=== PATIENT | male | born 1990 | race Caucasian/White ===

== ENCOUNTER 2016-12-31 01:41 | Emergency (ER) | payer SELFPAY ==
[~2016-12-31] VITALS: Ht 185.4 cm; Wt 126.4 kg
[2016-12-31 01:43] VITALS: TEMP 37.4; Ht 185.4 cm; Wt 126.4 kg
[2016-12-31] MEDS ORDERED: LIDOCAINE/EPINEPHRINE 1% 20 ML VIAL INFIL ONE (02:00)
[2016-12-31] MEDS ORDERED: CEFTRIAXONE SOD 350MG/ML 1 GM VIAL IM ONE (02:00)
[2016-12-31] MEDS ORDERED: DIPHTHERIA/TETANUS/PERTUSSIS 0.5 ML SYR/VIAL IM. ONE (02:00)
[2016-12-31] MEDS ORDERED: NORCO 5/325MG HOME PACK PO ONE (04:00)
[2016-12-31] MEDS ORDERED: CEPHALEXIN 500MG HOME PACK 1 EA BTL PO ONE (04:00)
[2016-12-31] MEDS ORDERED: CEPH500C PO (04:00)
[2016-12-31 04:16] VITALS: BP 127/74; PULSE 88; O2SAT 98
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
--- NOTE | 2016-12-31 07:09 | DIAGNOSTIC IMAGING REPORT ---
HEAD CT NONCONTRAST CT DOSE: HISTORY: Head injury/facial injury/trauma TECHNIQUE: Multiaxial CT images of the head were performed without the use of intravenous contrast. Automated exposure control was utilized for this study. Comparison: None. Findings: Mild mucosal thickening within the maxillary sinuses and a small fluid level within the left maxillary sinus. The mastoid air cells are clear. Small frontal scalp laceration. The calvarium and skull base are intact. The ventricles and sulci are within normal limits. There is no mass, hematoma, midline shift, or acute infarct. Impression: No acute intracranial abnormality. Frontal scalp laceration. Electronically signed by: Barry Bell M.D. 12/31/2016 7:08 AM Dictated Date/Time: 12/31/2016 7:06 AM
--- NOTE | 2016-12-31 07:11 | DIAGNOSTIC IMAGING REPORT ---
CERVICAL SPINE CT CT DOSE: 1183.33 mGy.cm HISTORY: Head injury/facial injury/trauma TECHNIQUE: Multiaxial CT images of the cervical spine were performed and reformatted in the sagittal and coronal plane without the use of contrast. COMPARISON: None. FINDINGS: No fractures. No subluxation. Prevertebral soft tissues and the C1-C2 interval are intact. No pneumothorax. IMPRESSION: No fractures within the cervical spine. Electronically signed by: Barry Bell M.D. 12/31/2016 7:10 AM Dictated Date/Time: 12/31/2016 7:08 AM
--- NOTE | 2016-12-31 07:18 | DIAGNOSTIC IMAGING REPORT ---
MAXILLOFACIAL CT WITHOUT CONTRAST CLINICAL HISTORY: Head injury/facial injury/trauma COMPARISON STUDY: None. TECHNIQUE: A maxillofacial CT was performed without IV contrast. Coronal and sagittal reformats were viewed. FINDINGS: No acute facial fracture is identified. There is a forehead contusion and laceration. No calvarial fracture is identified. A small air-fluid level within the left maxillary sinus is noted. There is mucosal thickening within the remainder of the sinuses. Orbital floors are intact. Globes are intact. There is no retrobulbar hematoma. Alignment of the temporomandibular joints is anatomic. IMPRESSION: 1. No acute facial fracture. 2. Forehead contusion and laceration. 3. Mild mucosal thickening of the sinuses with a small air-fluid level within the left maxillary sinus. Electronically signed by: Russel Johns M.D. 12/31/2016 7:16 AM Dictated Date/Time: 12/31/2016 7:13 AM
== END 2016-12-31 04:17 | disposition home or self-care (01) ==
LOC: EDBD 01:41 → C.EDA 01:43
DX: S01.81XA Laceration without foreign body of other part of head, initial encounter (principal); S06.0X0A Concussion without loss of consciousness, initial encounter; Y00.XXXA Assault by blunt object, initial encounter; Y92.89 Other specified places as the place of occurrence of the external cause